=== PATIENT | female | born 1965 | race African-American/Black ===

== ENCOUNTER 2018-02-05 03:18 | Inpatient (IN) ==
[2018-02-05] MEDS ORDERED: methylPREDNISolone SOD SUC 125 MG/2 ML VIAL IV STA (03:55)
[2018-02-05] MEDS ORDERED: SODIUM CHLORIDE 0.9% 1,000 ML IV STA (03:55)
[2018-02-05] MEDS ORDERED: ALBUTEROL/IPRATROPIUM 3 ML NEB RESP TX STA (03:55)
[2018-02-05 04:33] LABS: Basophils % 0.2 % (0.0-0.8); Hemoglobin 11.8 GM/DL (12.0-16.0); Immature Granulocytes % 0.3 %; Immature Granulocytes Absolute 0.03 #; Lymphocytes # 1.8 10*3/uL (1.4-4.0); Lymphocytes % 20.6 % (21.3-54.2); Mean Corpuscular HGB Conc 31.9 GM/DL (32-36); Mean Corpuscular Hemoglobin 28 PG (27-34); Mean Corpuscular Volume 87.9 FL (87-102); Mean Platelet Volume 11.8 FL (9.6-12.0); Monocytes # 0.7 10*3/uL (0.11-0.8); Monocytes % 8.4 % (1.7-12.7); Neutrophils % 70.5 % (38.7-73.9); Platelet Count 172 T/CUMM (130-400); Red Blood Count 4.21 MC/CUMM (3.8-5.5); Red Cell Distribution Width 15.5 % (9.3-17.3); White Blood Count 8.6 T/CUMM (4-12)
[2018-02-05 04:51] LABS: Hypochromasia 1+; Platelet Estimate Normal
[2018-02-05 04:56] LABS: Alanine Aminotransferase 28 U/L (13-56); Albumin 3.3 G/DL (3.4-5.0); Alkaline Phosphatase 70 U/L (45-117); Aspartate Amino Transferase 40 U/L (0-37); Bilirubin,Total < 0.39 MG/DL (0.2-1.0); Blood Urea Nitrogen 15 MG/DL (7-18); Calcium 7.7 MG/DL (8.5-10.1); Glucose 93 MG/DL (74-106); Osmolality,Calculated 283.1 MOS/KG (273-304); Potassium 3.3 MMOL/L (3.5-5.1); Sodium 142 MMOL/L (136-145); Total Protein 6.8 G/DL (6.4-8.3)
[2018-02-05] MEDS ORDERED: POTASSIUM BICARB EFFERVESCENT 25 MEQ TABLET PO ONE (05:00)
[2018-02-05 05:44] LABS: Apearance,Urine CLEAR (Clear); Bilirubin,Urine Negative (Negative); Blood, Urine Negative (Negative); Glucose,Urine (UA) Negative (Negative); Ketones,Urine Negative (Negative); Mucus,Urine Occasional /LPF (Occasional); Nitrite,Urine Negative (Negative); Protein,Urine Negative; RBC,Urine <1 /HPF (0-4); Squamous Epithelial Cell,Urine Occasional /HPF (0-10); Urine Color Yellow (Yellow); Urine Specific Gravity 1.023 (1.001-1.035); WBC,Urine 1 /HPF (0-6)
[2018-02-05] MEDS ORDERED: LEVOFLOXACIN INJ 500 MG in PREMIX 1 EACH IV STA (05:54)
[2018-02-05 06:18] LABS: ABG HCO3 29.2 MMOL/L (20-26); ABG Oxygen Saturation 83.8 % (95-100); ABG PCO2 41.6 MM HG (35-48); ABG PH 7.464 (7.35-7.45); ABG PO2 49.2 MM HG (80-95); ABG TCO2 30.5 MMOL/L (23-27); Allen Test Positive; Pt O2 Delivery Device Room Air
[2018-02-05] MEDS ORDERED: ACETAMINOPHEN 325 MG TABLET PO PRN (08:08)
[2018-02-05] MEDS ORDERED: ONDANSETRON 4 MG/2 ML VIAL IV PRN (08:08)
[2018-02-05] MEDS ORDERED: ALBUTEROL 2.5 MG/3 ML NEB RESP TX PRN (08:14)
[2018-02-05] MEDS ORDERED: SODIUM CHLORIDE 0.65% NASAL SPRAY 45 ML BOTTLE BOTH NARES PRN (08:14)
[2018-02-05] MEDS: predniSONE 20 MG TABLET PO SCH (09:34)
[2018-02-05] MEDS: POTASSIUM CHLORIDE 20 MEQ TABLET PO PRN ×2 (09:35→21:22)
[2018-02-05] MEDS: BENZONATATE 100 MG CAPSULE PO PRN ×2 (09:35→18:48)
[2018-02-05] MEDS: NICOTINE 21 MG/24 HR PATCH TRANSDERM SCH (09:35)
[2018-02-05] MEDS: PANTOPRAZOLE 40 MG TABLET PO SCH (09:35)
[2018-02-05 10:29] LABS: Barbiturates Screen,Urine Negative (Negative); Benzodiazepines Screen,Urine Negative (Negative); Cannabinoid Screen,Urine Negative (Negative); Opiate Screen,Urine Negative (Negative); Phencyclidine Screen,Urine Negative (Negative)
[2018-02-05] MEDS: ALBUTEROL/IPRATROPIUM 3 ML NEB RESP TX SCH ×2 (13:59→19:25)
[2018-02-05] MEDS: OXYBUTYNIN 5 MG TABLET PO SCH ×2 (17:01→21:23)
[2018-02-05] MEDS ORDERED: PHENOL 1.4% THROAT SPRAY 177 ML BOTTLE PO PRN (18:37)
[2018-02-05] MEDS: BISACODYL 5 MG TABLET PO PRN (21:23)
[2018-02-05] MEDS: ALPRAZolam 0.5 MG TABLET PO PRN (21:23)
[2018-02-06] MEDS: ALBUTEROL/IPRATROPIUM 3 ML NEB RESP TX SCH ×4 (01:56→18:50)
[2018-02-06 04:22] LABS: Basophils % 0.2 % (0.0-0.8); Hematocrit 37.5 VOL% (35.7-47.0); Hemoglobin 11.6 GM/DL (12.0-16.0); Immature Granulocytes % 0.6 %; Immature Granulocytes Absolute 0.05 #; Lymphocytes # 2.4 10*3/uL (1.4-4.0); Lymphocytes % 28.9 % (21.3-54.2); Mean Corpuscular HGB Conc 30.9 GM/DL (32-36); Mean Corpuscular Hemoglobin 27 PG (27-34); Mean Corpuscular Volume 87.8 FL (87-102); Mean Platelet Volume 12.4 FL (9.6-12.0); Monocytes # 0.7 10*3/uL (0.11-0.8); Monocytes % 8.9 % (1.7-12.7); Neutrophils % 61.4 % (38.7-73.9); Platelet Count 190 T/CUMM (130-400); Red Blood Count 4.27 MC/CUMM (3.8-5.5); Red Cell Distribution Width 15.6 % (9.3-17.3); White Blood Count 8.1 T/CUMM (4-12)
[2018-02-06 04:50] LABS: Calcium 8.4 MG/DL (8.5-10.1); Osmolality,Calculated 276.5 MOS/KG (273-304); Potassium 3.9 MMOL/L (3.5-5.1); Risk Ratio 2.4; Thyroid Stimulating Hormone 0.101 uIU/ml (0.358-3.74); VLDL CHOLESTEROL 14.8 MG/DL
[2018-02-06 05:46] LABS: Eosinophils 1 % (0-10); Hypochromasia 2+; Lymphocytes 35 % (20-55); Metamyelocytes 1 %; Platelet Estimate Normal; Segmented Neutrophils 58 % (50-85); Total Cells Counted 100
[2018-02-06] MEDS: PANTOPRAZOLE 40 MG TABLET PO SCH (08:24)
[2018-02-06] MEDS: predniSONE 20 MG TABLET PO SCH (08:24)
[2018-02-06] MEDS: OXYBUTYNIN 5 MG TABLET PO SCH ×3 (08:24→22:42)
[2018-02-06] MEDS: ALPRAZolam 0.5 MG TABLET PO PRN ×2 (08:24→22:42)
[2018-02-06] MEDS: LEVOFLOXACIN INJ 750 MG in PREMIX 1 EACH IV SCH (08:29)
[2018-02-06] MEDS: NICOTINE 21 MG/24 HR PATCH TRANSDERM SCH (08:51)
[2018-02-06] MEDS: BENZONATATE 100 MG CAPSULE PO PRN (22:42)
[2018-02-07] MEDS: NICOTINE 21 MG/24 HR PATCH TRANSDERM SCH (02:30)
[2018-02-07] MEDS: AMITRIPTYLINE 25 MG TABLET PO PRN ×2 (04:18→21:03)
[2018-02-07 05:27] LABS: Basophils % 0.2 % (0.0-0.8); Hematocrit 39.2 VOL% (35.7-47.0); Hemoglobin 12.2 GM/DL (12.0-16.0); Immature Granulocytes % 0.8 %; Immature Granulocytes Absolute 0.11 #; Lymphocytes # 5.4 10*3/uL (1.4-4.0); Mean Corpuscular HGB Conc 31.1 GM/DL (32-36); Mean Corpuscular Hemoglobin 27 PG (27-34); Mean Corpuscular Volume 87.7 FL (87-102); Mean Platelet Volume 12.2 FL (9.6-12.0); Monocytes # 0.8 10*3/uL (0.11-0.8); Monocytes % 5.7 % (1.7-12.7); Neutrophils # 6.9 10*3/uL (1.4-7.4); Neutrophils % 52.3 % (38.7-73.9); Platelet Count 192 T/CUMM (130-400); Red Blood Count 4.47 MC/CUMM (3.8-5.5); Red Cell Distribution Width 15.6 % (9.3-17.3); White Blood Count 13.2 T/CUMM (4-12)
[2018-02-07 05:55] LABS: Lymphocytes 39 % (20-55); Segmented Neutrophils 58 % (50-85); Total Cells Counted 100
[2018-02-07 05:56] LABS: Calcium 8.7 MG/DL (8.5-10.1); Osmolality,Calculated 280.4 MOS/KG (273-304); Platelet Estimate Adequate; Polychromasia Few; Potassium 3.7 MMOL/L (3.5-5.1)
[2018-02-07] MEDS: ALBUTEROL/IPRATROPIUM 3 ML NEB RESP TX SCH ×4 (07:49→19:31)
[2018-02-07] MEDS: BISACODYL 5 MG TABLET PO PRN (08:12)
[2018-02-07] MEDS: predniSONE 20 MG TABLET PO SCH (08:12)
[2018-02-07] MEDS: ALPRAZolam 0.5 MG TABLET PO PRN ×2 (08:12→21:03)
[2018-02-07] MEDS: PANTOPRAZOLE 40 MG TABLET PO SCH (08:12)
[2018-02-07] MEDS: OXYBUTYNIN 5 MG TABLET PO SCH ×3 (08:12→21:03)
[2018-02-07] MEDS: LEVOFLOXACIN INJ 750 MG in PREMIX 1 EACH IV SCH (08:13)
[2018-02-07] MEDS ORDERED: PROPYLTHIOURACIL 50 MG TABLET PO SCH (09:00)
[2018-02-07] MEDS ORDERED: BISACODYL 10 MG SUPP RECTAL PRN (13:57)
[2018-02-07] MEDS ORDERED: SODIUM PHOSPHATE ENEMA 133 ML BOTTLE RECTAL PRN (18:56)
[2018-02-07] MEDS: BENZONATATE 100 MG CAPSULE PO PRN (21:03)
[2018-02-08] MEDS: ALBUTEROL/IPRATROPIUM 3 ML NEB RESP TX SCH ×2 (00:17→07:40)
[2018-02-08 05:45] LABS: Basophils % 0.2 % (0.0-0.8); Hematocrit 39.9 VOL% (35.7-47.0); Hemoglobin 12.5 GM/DL (12.0-16.0); Immature Granulocytes % 0.9 %; Immature Granulocytes Absolute 0.14 #; Lymphocytes % 30.9 % (21.3-54.2); Mean Corpuscular HGB Conc 31.3 GM/DL (32-36); Mean Corpuscular Hemoglobin 27 PG (27-34); Mean Corpuscular Volume 86.6 FL (87-102); Mean Platelet Volume 11.7 FL (9.6-12.0); Monocytes % 6.4 % (1.7-12.7); Neutrophils % 61.6 % (38.7-73.9); Platelet Count 209 T/CUMM (130-400); Red Blood Count 4.61 MC/CUMM (3.8-5.5); Red Cell Distribution Width 15.5 % (9.3-17.3); White Blood Count 16.2 T/CUMM (4-12)
[2018-02-08] MEDS: BISACODYL 5 MG TABLET PO PRN (06:05)
[2018-02-08] MEDS: BENZONATATE 100 MG CAPSULE PO PRN (06:05)
[2018-02-08] MEDS: ALPRAZolam 0.5 MG TABLET PO PRN (06:07)
[2018-02-08 06:09] LABS: Calcium 8.6 MG/DL (8.5-10.1); Osmolality,Calculated 274.7 MOS/KG (273-304)
[2018-02-08 06:19] LABS: Hypochromasia 1+; Platelet Estimate Adequate
[2018-02-08] MEDS: NICOTINE 21 MG/24 HR PATCH TRANSDERM SCH ×2 (06:45→09:53)
[2018-02-08] MEDS: LEVOFLOXACIN INJ 750 MG in PREMIX 1 EACH IV SCH (07:24)
[2018-02-08] MEDS ORDERED: POLYETHYLENE GLYCOL POWDER 17 GM PACK PO SCH (09:00)
[2018-02-08] MEDS: OXYBUTYNIN 5 MG TABLET PO SCH (09:48)
[2018-02-08] MEDS: predniSONE 20 MG TABLET PO SCH (09:48)
[2018-02-08] MEDS: PANTOPRAZOLE 40 MG TABLET PO SCH (09:48)
[2018-02-08 11:43] VITALS: BP 114/85
== END 2018-02-08 13:34 | disposition home or self-care (01) | DRG 140 ==
LOC: EDBD → EDUNIT# → N.ED 03:18 → N.EDINP 08:06 → SUATTDRO 08:06 → N.5E 09:03
PROVIDERS: ADMIT Internal Medicine; ATTEND Internal Medicine